=== PATIENT | male | born 1970 | race Caucasian/White ===

== ENCOUNTER 2017-12-17 21:30 | Emergency (ER) | payer MEDICAID ==
[~2017-12-17] VITALS: Ht 160 cm; Wt 67.1 kg
[2017-12-17 21:41] VITALS: Ht 160 cm; Wt 67.1 kg
[2017-12-17 22:53] LABS: BASOPHIL % 0.2 % (0-2); PLATELET COUNT 213 x10^3mcL (130-400); RED CELL DISTRIBUTION WIDTH 13.2 % (11.5-14.5)
[2017-12-18 02:13] LABS: CALCIUM 8.7 mg/dL (8.5-10.1); CARBON DIOXIDE 23.1 mmol/L (21-32); CHLORIDE SERUM 104 mmol/L (98-107); CREATININE SERUM 0.8 mg/dL (0.7-1.3); GFR1 > 60 mL/min; GLUCOSE SERUM 120 mg/dL (74-106); POTASSIUM SERUM 3.5 mmol/L (3.5-5.1); SODIUM SERUM 142 mmol/L (136-145)
[2017-12-18 02:32] LABS: AMPHETAMINE QUAL UR NONE DETECTED (NEG <=1000)
[2017-12-18 04:20] VITALS: BP 101/69
== END 2017-12-18 04:20 | disposition home or self-care (01) ==
LOC: ED 21:30
PROVIDERS: Emergency Medicine Emergency Medical Services
DX: F41.1 Generalized anxiety disorder (principal)
CPT/HCPCS: 85378; J1885; J7030; Q0092